=== PATIENT | male | born 1950 | race Caucasian/White ===

== ENCOUNTER → 2016-09-30 | Outpatient (CLI) | payer OTHER | LOC: RAD 10:33 | DX: J60 Coalworker's pneumoconiosis (principal); R06.00 Dyspnea, unspecified; I10 Essential (primary) hypertension; J42 Unspecified chronic bronchitis | CPT/HCPCS: 71020 ==

== ENCOUNTER → 2016-10-26 | Outpatient (CLI) | payer OTHER | LOC: HEART 5 14:56 | DX: R94.2 Abnormal results of pulmonary function studies (principal); F17.210 Nicotine dependence, cigarettes, uncomplicated | CPT/HCPCS: 94010 ==

== ENCOUNTER → 2022-02-26 | Outpatient (CLI) | payer MEDICARE | LOC: EXRD 10:55 | DX: J60 Coalworker's pneumoconiosis (principal); R91.8 Other nonspecific abnormal finding of lung field | CPT/HCPCS: 71046 ==